=== PATIENT | female | born 1955 | race Caucasian/White ===

== ENCOUNTER 2016-07-20 18:06 | Emergency (ER) | payer MEDICAID, OTHER ==
[~2016-07-20] VITALS: Ht 167.6 cm; Wt 129.9 kg
[2016-07-20 19:06] LABS: BASOPHILS % (AUTO) 0 % (0-2); EOSINOPHILS # (AUTO) 0.1 10^3uL; EOSINOPHILS % (AUTO) 1 % (0-4); LYMPHOCYTES # (AUTO) 3.8 X10^3; MEAN CORPUSCULAR HEMOGLOBIN 27.9 PG (26.0-34.0); MEAN CORPUSCULAR HGB CONC 33.2 g/dL (31.0-37.0); MEAN CORPUSCULAR VOLUME 84 FL (80-100); MEAN PLATELET VOLUME 9.9 FL (6.0-9.5); MONOCYTES # (AUTO) 0.8 X10^3; MONOCYTES % (AUTO) 8 % (3-11); NEUTROPHILS # (AUTO) 5.3 X10^3; NEUTROPHILS % (AUTO) 53 % (51-67); PLATELET COUNT 318 10^3uL (150-450); WHITE BLOOD COUNT 10.13 10^3uL (4.0-11.0)
[2016-07-20] MEDS ORDERED: ONDANSETRON 2 MG/ML (Z0FRAN) 2 ML VIAL IV ONE (19:15)
[2016-07-20] MEDS ORDERED: SODIUM CHLORIDE FLUSH 10 ML SYR IV PRN (19:15)
[2016-07-20 19:18] LABS: ALBUMIN 4.2 g/dL (3.4-5.0); ANION GAP 15.1 MEQ/L (3-15); TOTAL PROTEIN 7.4 g/dL (6.4-8.5)
[2016-07-20 19:34] LABS: BILIRUBIN,URINE Negative (Negative); CLARITY,URINE Clear; COLOR,URINE Yellow; GLUCOSE, URINE (UA) Negative (Negative); LEUKOCYTE ESTERASE ,URINE Negative (Negative); PH,URINE 5.5 (5.0 - 8.0); UROBILINOGEN,URINE 0.2 mg/dL (0.2-1.0)
[2016-07-20] MEDS ORDERED: GI COCKTAIL 55 ML UDC PO ONE (19:45)
[2016-07-20] MEDS ORDERED: MAG HYDROX/AL HYDROX/SIMETH 400-400-40/5 ML (MAG-AL PLUS XS) 30 ML UDC ONE (19:47)
[2016-07-20] MEDS ORDERED: BELLADONNA/PHENOBARBITAL ELIXIR (DONNATAL) 10 ML UDC ONE (19:47)
[2016-07-20] MEDS ORDERED: LIDOCAINE 2% VISCOUS 20ML UDC PO ONE (19:47)
[2016-07-20 20:03] LABS: AMPHETAMINE SCREEN, URINE Negative (Negative); CANNABINOID SCREEN, URINE Negative (Negative); METHAMPHETAMINE SCREEN URINE S NEGATIVE (NEGATIVE); OPIATE SCREEN URINE Negative (Negative); PROPOXYPHENE STAT NEGATIVE (NEGATIVE)
[2016-07-20 20:37] VITALS: BP 179/63
== END 2016-07-20 20:38 | disposition home or self-care (01) ==
LOC: ED 18:07
DX: K29.70 Gastritis, unspecified, without bleeding (principal)
CPT/HCPCS: 36415; 74176; 80053; 80307; 81003; 83605; 83690; 85025; 86140; 96361; 96374; 99283; J2405; J7030